=== PATIENT | female | born 1960 | race Caucasian/White ===

== ENCOUNTER 2016-11-05 15:55 | Emergency (ER) | payer OTHER ==
[~2016-11-05] VITALS: Wt 61.5 kg
[~2016-11-05 15:55] MED LIST: ASPI-664 PO; ATOR40TA68 PO
[2016-11-05] MEDS ORDERED: NITROGLYCERIN 2% 1 GM OINT PKT TD STA (21:46)
[2016-11-05] MEDS ORDERED: SOD CHLORIDE 0.9% 500 ML IV STA (21:46)
[2016-11-05] MEDS ORDERED: ASPIRIN 81 MG TAB PO STA (21:46)
[2016-11-05] MEDS ORDERED: ONDANSETRON 4 MG INJ IV STA (21:50)
[2016-11-05] MEDS ORDERED: FLUO20CA38 PO (22:03)
[2016-11-05] MEDS ORDERED: FAMO20TA18 PO (22:05)
[2016-11-05 22:15] LABS: BASOPHILS % 0.4 % (0.0-2.0); EOSINOPHILS % 0.3 % (0.0-7.0); HEMOGLOBIN 12.4 g/dl (12.0-16.0); LYMPHOCYTES # 0.3 10^3/ul (0.8-2.9); LYMPHOCYTES % 7.6 % (15.0-51.0); MEAN CORPUSCULAR HEMOGLOBIN 26.2 pg (29.0-33.0); MEAN CORPUSCULAR HGB CONC 33.4 g/dl (32.0-37.0); MEAN CORPUSCULAR VOLUME 78.5 fl (82.0-101.0); MEAN PLATELET VOLUME 8.1 fl (7.4-10.4); MONOCYTE # 0.2 10^3/ul (0.3-0.9); MONOCYTES % 5.1 % (0.0-11.0); NEUTROPHIL # 3.6 10^3/ul (1.6-7.5); NEUTROPHILS % 86.6 % (39.0-77.0); PLATELET COUNT 225 10^3/UL (140-440); RED BLOOD COUNT 4.71 10^6/ul (4.20-5.40); RED CELL DISTRIBUTION WIDTH 14.1 % (11.5-14.5); UNCORRECTED WBC 4.2 10^3/ul (4.8-10.8); WHITE BLOOD COUNT 4.2 10^3/ul (4.8-10.8)
[2016-11-05 22:17] LABS: CONDITION 1; LH ANALYZER COMMENTS 1
[2016-11-05 22:20] LABS: ALBUMIN 5.1 g/dl (3.3-4.9); CHLORIDE 98 mmol/L (97-110)
[2016-11-05 22:21] LABS: POTASSIUM 3.9 mmol/L (3.5-5.1); SODIUM 139 mmol/L (135-144)
[2016-11-05 22:23] LABS: ALKALINE PHOSPHATASE 96 IU/L (42-121); ANION GAP 22 (8-16); ASPARTATE AMINO TRANSFERASE 32 IU/L (15-46); BILIRUBIN,INDIRECT 0.3 mg/dl (0-1.1); BILIRUBIN,TOTAL 0.3 mg/dl (0.2-1.3); CARBON DIOXIDE 23 mmol/L (21-31); CREATININE 0.65 mg/dl (0.44-1.00); INR 1.03; PROTIME 13.5 Sec (12.2-14.2); PT RATIO 1.1; TOTAL PROTEIN 8.5 g/dl (6.1-8.1)
--- NOTE | 2016-11-05 22:23 | RADRPT ---
PROCEDURE: CR, chest CLINICAL INDICATION: Chest pain. TECHNIQUE: AP chest. COMPARISON: None available. FINDINGS: The heart is not enlarged. There is no acute infiltrate in the lungs. No pleural effusion. IMPRESSION: 1. Unremarkable chest x-ray. RPTAT: GG .Hank Aleman MD, Date Time Electronically viewed and signed by .Hank Aleman MD, MD on 11/05/2016 22:22 .Y/
[2016-11-05 22:24] LABS: ALANINE AMINOTRANSFERASE 25 IU/L (13-69); BLOOD UREA NITROGEN 10 mg/dl (7-20); CALCIUM 9.7 mg/dl (8.4-10.2); GLUCOSE 102 mg/dl (70-220); PARTIAL THROMBOPLASTIN TIME 30.2 Sec (25.0-35.0)
[2016-11-05 22:32] LABS: B-TYPE NATRIURETIC PEPTIDE 194 PG/ML (0-125)
[2016-11-05] MEDS ORDERED: morphine 4 MG/ML VIAL IV STA (22:32)
--- NOTE | 2016-11-05 22:44 | RADRPT ---
PROCEDURE: US Abdomen. CLINICAL INDICATION: Abdominal Pain TECHNIQUE: Multiple real-time images were acquired of the patient's abdomen and retroperitoneum ut ilizing a high resolution transducer. COMPARISON: CT 08/28/2015 FINDINGS: The liver demonstrates normal echogenicity and size and no focal lesions are seen. The liver measure s 11.9 cm in length. There are hyperechoic structures in the right liver, up to 3.2 x 2.7 cm, with p osterior acoustic enhancement. There are gallstones in the neck of the gallbladder. There is no ga llbladder wall thickening or pericholecystic fluid. No intra or extrahepatic biliary dilatation is s een. The common bile duct is borderline prominent and measures 6 mm in maximal dimension. The visu alized pancreas appears within normal limits. No free fluid is identified. The right kidney measures 8.5 cm in long dimension. There is no right hydronephrosis or visualized r enal calculi. The proximal aorta measures cm in transverse dimension. IMPRESSION: 1. Gallstones in the gallbladder. No gallbladder wall thickening or pericholecystic fluid. 2. Borderline prominent common bile duct, 6 mm in diameter. 3. Hyperechoic hepatic lesion or lesions up to 3.2 cm . The appearance likely reflects hemangiomas if there are no risk factors for metastasis or hepatic neoplasm. Hepatic protocol contrast enhance d CT or MRI may be considered if there is clinical concern. At least 1 similar lesion was seen on p rior CT. RPTAT: HBST .Joey Main MD, MD Date Time Electronically viewed and signed by .Joey Main MD, on 11/05/2016 22:44 .T/
[2016-11-05 22:53] LABS: TROPONIN-I < 0.012 ng/ml (0.00-0.12)
[2016-11-05] MEDS ORDERED: ONDA4TAB14 PO (23:50)
[2016-11-05] MEDS ORDERED: TRAM50TA2 PO (23:50)
--- NOTE | 2016-11-05 23:54 | ERD ---
ER Documentation Chief Complaint Date/Time DATE: 11/05/16 TIME: 23:52 Chief Complaint CP AND PRESSURE SINCE THIS MORNING. LEFT ARM TINGLING. NAUSEA NO VOMITN HPI 55-year-old female chest pain versus morning. She has left arm tingling. Mild nausea no vomiting. Patient has been started a right upper quadrant. Patient has history of known gallstones. No fevers no chills. No other current complaints. ROS All systems reviewed and are negative except as per history of present illness. Medications Home Meds Active Scripts Ondansetron (Ondansetron Odt) 4 Mg Tab.rapdis, 4 MG PO Q6H Y for NAUSEA AND/OR VOMITING, #10 TAB Prov:BLADIMIR MOSQUEDA S. 11/05/16 Tramadol HCl (Tramadol HCl) 50 Mg Tablet, 50 MG PO Q4 Y for PAIN, #20 TAB Prov:BLADIMIR MOSQUEDA S. 11/05/16 Reported Medications Famotidine* (Famotidine*) 20 Mg Tablet, 20 MG PO DAILY, #30 TAB 11/05/16 Atorvastatin* (Atorvastatin*) 40 Mg Tablet, 40 MG PO HS, TAB 08/27/15 Discontinued Reported Medications Fluoxetine Hcl* (Prozac*) 20 Mg Capsule, 20 MG PO DAILY, CAP 11/05/16 Aspirin* (Aspirin* (EC)) 81 Mg Tablet.dr, 81 MG PO DAILY, TAB 08/27/15 Allergies Allergies: Coded Allergies: No Known Allergy (Unverified , 11/05/16) PMhx/Soc History of Surgery: Yes (HYSTERECTOMY, REMOVED 1/3 OF STOMACH, APPENDECTOMY, TONSILLECTOMY) Anesthesia Reaction: No Hx Neurological Disorder: No Hx Respiratory Disorders: No Hx Cardiac Disorders: No Hx Psychiatric Problems: No Hx Miscellaneous Medical Probl: Yes (HIGH CHOLESTEROL, CHRONIC ABDOMINAL PAIN) Hx Alcohol Use: No Hx Substance Use: No Hx Tobacco Use: No Smoking Status: Never smoker Physical Exam Vitals Vital Signs Date Time Temp Pulse Resp B/P Pulse Ox O2 Delivery O2 Flow Rate FiO2 11/05/16 22:51 80 16 114/64 99 Room Air 11/05/16 21:55 98.1 66 18 130/66 100 Room Air 11/05/16 16:06 98.8 97 20 150/63 100 Physical Exam Const: [] Head: Atraumatic Eyes: Normal Conjunctiva ENT: Normal External Ears, Nose and Mouth. Neck: Full range of motion..~ No meningismus. Resp: Clear to auscultation bilaterally Cardio: Regular rate and rhythm, no murmurs Abd: Soft, non tender, non distended. Normal bowel sounds Skin: No petechiae or rashes Back: No midline or flank tenderness Ext: No cyanosis, or edema Neur: Awake and alert Psych: Normal Mood and Affect Result Diagram: 11/05/16215411/05/162154 Results 24 hrs Laboratory Tests Test 11/05/16 21:55 Activated Partial Thromboplast Time 30.2Sec Alanine Aminotransferase (ALT/SGPT) 25IU/L Albumin 5.1g/dl Albumin/Globulin Ratio 1.50 Alkaline Phosphatase 96IU/L Anion Gap 22 Aspartate Amino Transf (AST/SGOT) 32IU/L B-Type Natriuretic Peptide 194PG/ML Basophils # 0.010^3/ul Basophils % 0.4% Blood Morphology Comment Blood Urea Nitrogen 10mg/dl Calcium Level 9.7mg/dl Carbon Dioxide Level 23mmol/L Chloride Level 98mmol/L Creatinine 0.65mg/dl Direct Bilirubin 0.00mg/dl Eosinophils # 0.010^3/ul Eosinophils % 0.3% Globulin 3.40g/dl Glucose Level 102mg/dl Hematocrit 37.0% Hemoglobin 12.4g/dl INR International Normalized Ratio 1.03 Indirect Bilirubin 0.3mg/dl Lymphocytes # 0.310^3/ul Lymphocytes % 7.6% Mean Corpuscular Hemoglobin 26.2pg Mean Corpuscular Hemoglobin Concent 33.4g/dl Mean Corpuscular Volume 78.5fl Mean Platelet Volume 8.1fl Monocytes # 0.210^3/ul Monocytes % 5.1% Neutrophils # 3.610^3/ul Neutrophils % 86.6% Nucleated Red Blood Cells # 0.010^3/ul Nucleated Red Blood Cells % 0.0/100WBC Platelet Count 78230^3/UL Potassium Level 3.9mmol/L Prothrombin Time 13.5Sec Prothrombin Time Ratio 1.1 Red Blood Count 4.7110^6/ul Red Cell Distribution Width 14.1% Sodium Level 139mmol/L Total Bilirubin 0.3mg/dl Total Protein 8.5g/dl Troponin I < 0.012ng/ml White Blood Count 4.210^3/ul Current Medications Medications (Trade) Dose Ordered Sig/Yonny Route PRN Reason Start Time Stop Time Status Last Admin Dose Admin Sodium Chloride (NS) 500 ml @ 500 mls/hr Q1H STAT IV 11/05/16 21:46 11/05/16 22:45 DC 11/05/16 22:37 Aspirin (Aspirin) 162 mg ONCE STAT PO 11/05/16 21:46 11/05/16 21:52 DC Nitroglycerin (Nitroglycerin 2% Oint) 1 inch ONCE STAT TD 11/05/16 21:46 11/05/16 21:52 DC Ondansetron HCl (Zofran Inj) 4 mg ONCE STAT IV 11/05/16 21:50 11/05/16 21:52 DC 11/05/16 22:38 Morphine Sulfate (morphine) 4 mg ONCE STAT IV 11/05/16 22:32 11/05/16 22:33 DC 11/05/16 22:38 Procedures/MDM EKG: Rate/Rhythm: Normal Sinus Rhythm QRS, ST, T-waves: No changes consistent w/ acute ischemia Impression: No evidence of ischemia or arrhythmia Chest X-ray 1V Interpreted by me: Soft Tissue: No acute abnormalities Bones: No acute abnormalities Mediastinum/Cardiac Silhouette/Lungs: No acute abnormalities Vital balance and shows multiple gallstones but no pericholecystic fluid. Please see radiologist for dictation for report. Medical decision making.: This very pleasant patient here for biliary colic management of his symptoms resolved completely. She is full and pain-free to be discharged home. Follow-up in 8 hours for serial abdominal exams were referred to outpatient surgery. Departure Diagnosis: Primary Impression: Biliary colic Condition: Stable Patient Instructions: Biliary Colic With Gallstone (Confirmed) Referrals: LUBA MYERS MD, DANIEL S. Nov 05, 2016 23:54
[2016-11-06] VITALS: BP 113/69; PULSE 85; RESP 18; TEMP 98
== END 2016-11-06 00:01 | disposition home or self-care (01) ==
LOC: E/R 15:55
DX: K80.50 Calculus of bile duct without cholangitis or cholecystitis without obstruction (principal); R40.2252 Coma scale, best verbal response, oriented, at arrival to emergency department; R11.0 Nausea; R40.2362 Coma scale, best motor response, obeys commands, at arrival to emergency department; R40.2142 Coma scale, eyes open, spontaneous, at arrival to emergency department; Z79.82 Long term (current) use of aspirin
CPT/HCPCS: 36415; 71010; 76705; 80053; 83880; 84484; 85025; 85610; 85730; 93005; 96374; 96375; J2270; J2405; J7040; Z7502